=== PATIENT | male | born 1965 | race Caucasian/White ===

== ENCOUNTER → 2021-04-12 | Outpatient (CLI) | payer OTHER ==
--- NOTE | 2021-04-12 15:37 | KCIC ---
MR LUMBAR SPINE [id number] Date: 04/12/2021 11:15 AM Indication: LUMBAGO. Prior fusion in 1999. Lifting injury in December. New contstant right sided lower ba ck pain, down leg. Comparison: None. Technique: Multi-planar multi-weighted magnetic resonance imaging of the lumbar spine was performed w ithout intravenous contrast using the standard lumbar spine protocol. FINDINGS: Transitional anatomy at the lumbosacral junction with rudimentary disc at S1-S2. Postsurgical changes of posterior decompression and posterior instrumentation at L4-S1. Straightening of the lumbar lordosis. No acute fracture. Mild to moderate multilevel degenerative dis c desiccation and disc height loss. Osseous fusion across the L4-5 and L5-S1 disc spaces. The conus terminates at a normal level. No abnormal signal is seen within the visualized distal spina l cord. No clumping of intrathecal nerve roots. No soft tissue abnormality in the visualized abdomen or pelvis. L1-L2: No disc bulge. No facet arthropathy. No significant spinal stenosis or neural foraminal narrow ing. L2-L3: Disc bulge. Mild facet arthropathy. Mild spinal stenosis and left lateral recess and. Mild marisela ateral neural foraminal narrowing. L3-L4: Disc bulge. Moderate facet arthropathy. Ligamentum flavum thickening. Moderate spinal stenosis . Mild lateral recess narrowing. Moderate bilateral neural foraminal narrowing. L4-L5: Posterior decompression. No spinal canal stenosis. Mild left neural foraminal narrowing. L5-S1: Posterior decompression. No spinal canal stenosis or neural foraminal narrowing. IMPRESSION: Mild to moderate lumbar spondylosis, worst at L3-4 and detailed level by level above. Electronically signed by: Flash Yousif MD (04/12/2021 3:35 PM) [facility]
== END ==
LOC: KCIC MRI 10:57
PROVIDERS: ATTEND Orthopaedic Surgery
DX: M47.816 Spondylosis without myelopathy or radiculopathy, lumbar region (principal); M48.061 Spinal stenosis, lumbar region without neurogenic claudication; M72.2 Plantar fascial fibromatosis
CPT/HCPCS: 72148